=== PATIENT | male | born 1945 | race Caucasian/White ===

== ENCOUNTER → 2018-04-02 | Outpatient (CLI) | payer MEDICARE ==
--- NOTE | 2018-04-03 08:07 | REP ---
Clinical: Lung screening. History of nicotine dependence Comparison: 01/27/2015 Technique: Axial low-dose noncontrast images from the thoracic inlet to the upper abdomen using lung screening technique. Findings: The lung lyon demonstrate mild chronic interstitial changes along with scattered calcified granulomata and calcified mediastinal/hilar lymph nodes consistent with prior granulomas disease. No consolidation, significant nodule or mass lesion is appreciated. No pleural effusion/reaction or pneumothorax. Tracheobronchial tree is patent. There is evidence for aneurysmal dilatation to the thoracic aorta primarily involving the distal arch and proximal descending thoracic aorta which measures roughly 5.5 cm maximal diameter. Impression: 1. Lung-RADS category I. No significant nodule or suspicious abnormality. Evidence for chronic granulomas disease essentially unchanged compared to prior examination. 2. Aneurysmal dilatation to the thoracic aorta as described above incompletely evaluated due to technique. Consider contrast enhanced chest CT for further investigation. Electronically Signed by Chris Ochoa MD 04/03/2018 07:58 A
== END ==
LOC: M RAD 14:23
PROVIDERS: ATTEND Internal Medicine Pulmonary Disease
DX: Z12.2 Encounter for screening for malignant neoplasm of respiratory organs (principal); Z87.891 Personal history of nicotine dependence; J44.9 Chronic obstructive pulmonary disease, unspecified; I77.810 Thoracic aortic ectasia

== ENCOUNTER → 2019-04-27 | Outpatient (CLI) | payer MEDICARE ==
--- NOTE | 2019-04-27 11:03 | REP ---
Clinical: Lung screening. History smoking. Comparison: 04/02/2018, 01/27/2015 Technique: Axial low-dose noncontrast images from the thoracic inlet to the upper abdomen using lung screening technique. Findings: The lung lyon are well-aerated. Chronic stable changes related to prior granulomatous disease are again noted including stable 5 mm nodule in the right middle lobe. No consolidation, significant nodule or mass lesion is appreciated. No pleural effusion/reaction or pneumothorax. Tracheobronchial tree is patent. Mediastinum demonstrates mild atherosclerotic changes of the coronary arteries without cardiomegaly. Aneurysmal dilatation to the thoracic aorta is again noted. Impression: 1. Lung-RADS category II. Stable chronic changes related to prior granulomatous disease unchanged compared 05/28/2014. 2. Thoracic aortic aneurysm again noted. Electronically Signed by Chirs Ochoa MD 04/27/2019 10:54 A
== END ==
LOC: M RAD 10:30
PROVIDERS: ATTEND Internal Medicine Pulmonary Disease
DX: Z87.891 Personal history of nicotine dependence (principal); Z12.2 Encounter for screening for malignant neoplasm of respiratory organs

== ENCOUNTER 2021-10-20 11:54 | Inpatient (IN) | payer MEDICARE ==
[~2021-10-20] VITALS: Ht 172.7 cm; Wt 80.6 kg
[2021-10-20] VITALS (7 sets, daily range): BP systolic 157; BP diastolic 79; O2SAT 96–98
[2021-10-20] MEDS ORDERED: BUDE10.7 INH ×2 (12:20→12:27)
[2021-10-20] MEDS ORDERED: METO100T5 PO (12:20)
[2021-10-20] MEDS ORDERED: PROAAER10 INH (12:20)
[2021-10-20] MEDS ORDERED: OLAN2.5T25 PO (12:20)
[2021-10-20] MEDS ORDERED: ATOR40TA75 PO (12:20)
[2021-10-20] MEDS ORDERED: ELIQ5TAB PO (12:20)
[2021-10-20] MEDS ORDERED: ACET500T15 PO (12:27)
[2021-10-20] MEDS ORDERED: AMIO200T49 PO (12:27)
[2021-10-20] MEDS ORDERED: FLOM0.4C39 PO (12:27)
[2021-10-20] MEDS ORDERED: CLOP75TA2 PO (12:27)
[2021-10-20] MEDS ORDERED: IPRA0.00 INH (12:27)
[2021-10-20] MEDS ORDERED: SERT25TA21 PO (12:27)
[2021-10-20] MEDS ORDERED: SENN-23 PO (12:27)
[2021-10-20] MEDS ORDERED: HOME MED LIST COMPLETE! XX SCH (12:30)
[2021-10-20] MEDS ORDERED: methylPREDNISolone 125MG 2ML VIAL IV ONE (12:50)
[2021-10-20 12:56] LABS: BASO % 0.4 % (0.0-1.0); EOS # 0.1 10^3/uL (0.0-0.5); EOS % 1.2 % (0.0-3.0); HEMATOCRIT 32.6 % (42.0-52.0); HEMOGLOBIN 9.5 g/dl (13.5-17.5); LYMPH % 9.1 % (24.0-44.0); MEAN CORPUSCULAR HEMOGLOBIN 25.1 pg (27.0-33.0); MEAN CORPUSCULAR HGB CONC 29.1 g/dl (32.0-36.5); MONO # 0.9 10^3/uL (0.0-0.8); MONO % 8.2 % (2.0-8.0); NEUTROPHILS # 8.7 10^3/uL (1.5-8.5); NEUTROPHILS % 79.9 % (36.0-66.0); PLATELET COUNT, AUTOMATED 412 10^3/uL (150-450); RED BLOOD COUNT 3.79 10^6/uL (4.30-6.10); WHITE BLOOD COUNT 10.9 10^3/uL (4.0-10.0)
[2021-10-20] MEDS: IPRATROPIUM 0.5MG/ALBUTEROL 2.5MG INH SOL UD 3ML (DUONEB) NEB PRN ×3 (12:59→13:42)
[2021-10-20 13:08] LABS: INR 2.18; PROTHROMBIN TIME 24.7 SECONDS (12.7-14.5)
[2021-10-20 13:21] LABS: ABG BASE EXCESS 1.4 (-2.0-2.0); ABG HCO3 25.9 MEQ/L (22.0-26.0); ABG O2 SATURATION 98.9 % (95.0-99.0); ABG PARTIAL PRESSURE CO2 40.7 mmHg (35.0-45.0); ABG PARTIAL PRESSURE O2 162.7 mmHg (75.0-100.0); ABG STANDARD HCO3 25.7 MEQ/L (22.0-26.0); ABG TOTAL CO2 27.2 MEQ/L (23.0-31.0); ABG pH (ARTERIAL) 7.422 UNITS (7.350-7.450)
[2021-10-20 13:36] LABS: CK-MB VALUE MASS 7.2 NG/ML (<3.6); MB/CK RELATIVE INDEX 3.67 (< OR =4)
[2021-10-20 13:44] LABS: ALBUMIN 1.9 GM/DL (3.2-5.2); ALT/SGPT 27 U/L (12-78); BILIRUBIN,DIRECT 0.3 MG/DL (0.0-0.2); BILIRUBIN,TOTAL 0.6 MG/DL (0.2-1.0); BLOOD UREA NITROGEN 19 MG/DL (7-18); CALCIUM LEVEL 8.1 MG/DL (8.8-10.2); CARBON DIOXIDE LEVEL 29 MEQ/L (21-32); CHLORIDE LEVEL 112 MEQ/L (98-107); CREATININE FOR GFR 0.75 MG/DL (0.70-1.30); GLOMERULAR FILTRATION RATE > 60.0 (>42); GLUCOSE, FASTING 98 MG/DL (70-100); LIPASE 180 U/L (73-393); NT-PRO BNP 683 PG/ML (<450); POTASSIUM SERUM 4.2 MEQ/L (3.5-5.1); SODIUM LEVEL 144 MEQ/L (136-145)
[2021-10-20] MEDS ORDERED: ISOVUE-370 76% 100ML VIAL As Ordered ONE (13:54)
[2021-10-20] MEDS ORDERED: PANTOPRAZOLE 40MG VIAL IV ONE (13:55)
[2021-10-20 14:43] LABS: MB/CK RELATIVE INDEX 3.68 (< OR =4)
[2021-10-20] MEDS ORDERED: PIPERACILLIN/TAZOBACTAM SOD 3.375 GM in D5W MINI-BAG PLUS 50 ML IV SCH (16:10)
[2021-10-20] MEDS ORDERED: VANCOMYCIN HCL 1,000 MG, VIAL MATE ADAPTER 1 EACH in NS 250 ML IV SCH (16:10)
[2021-10-20] MEDS ORDERED: FUROSEMIDE 40MG/4ML VIAL (J1940) IV ONE (18:50)
[2021-10-20] MEDS: PIPERACILLIN/TAZOBACTAM SOD 4.5 GM in D5W MINI-BAG PLUS 50 ML IV SCH (19:44)
[2021-10-20 19:52] LABS: HEMATOCRIT 30.9 % (42.0-52.0); HEMOGLOBIN 9.2 g/dl (13.5-17.5)
[2021-10-20] MEDS ORDERED: VANCOMYCIN HCL 1,000 MG, VIAL MATE ADAPTER 1 EACH in D5W 250 ML IV ONE ×2 (20:00→22:00)
[2021-10-20] MEDS ORDERED: VANCOMYCIN HCL 750 MG, VIAL MATE ADAPTER 1 EACH in D5W 250 ML IV ONE ×2 (20:00→23:00)
[2021-10-20] MEDS: ATORVASTATIN 20 MG TAB PO SCH (22:01)
[2021-10-20] MEDS: SERTRALINE HCL 25 MG TABLET PO SCH (22:01)
[2021-10-20] MEDS: SENOKOT S TAB PO SCH (22:02)
[2021-10-20] MEDS: OLANZapine 2.5MG TABLET PO SCH (22:04)
[2021-10-20 22:37] LABS: PERCENT SATURATION 10.9 % (19.7-50.0)
[2021-10-20 22:48] LABS: FOLATE 23.4 NG/ML (>5.4)
[2021-10-20] MEDS: IPRATROPIUM 0.5MG/ALBUTEROL 2.5MG INH SOL UD 3ML (DUONEB) NEB SCH (23:24)
[2021-10-21] VITALS (20 sets, daily range): BP systolic 102–154; BP diastolic 51–70; O2SAT 88–100
[2021-10-21 01:21] LABS: HEMATOCRIT 29.4 % (42.0-52.0); HEMOGLOBIN 8.7 g/dl (13.5-17.5)
[2021-10-21] MEDS: PIPERACILLIN/TAZOBACTAM SOD 4.5 GM in D5W MINI-BAG PLUS 50 ML IV SCH ×4 (01:36→18:30)
[2021-10-21] MEDS: IPRATROPIUM 0.5MG/ALBUTEROL 2.5MG INH SOL UD 3ML (DUONEB) NEB SCH ×6 (03:47→22:36)
[2021-10-21 05:18] LABS: HEMATOCRIT 30.3 % (42.0-52.0); HEMOGLOBIN 8.8 g/dl (13.5-17.5); MEAN CORPUSCULAR HEMOGLOBIN 25.1 pg (27.0-33.0); MEAN CORPUSCULAR VOLUME 86.6 fl (80.0-96.0); PLATELET COUNT, AUTOMATED 397 10^3/uL (150-450); WHITE BLOOD COUNT 8.4 10^3/uL (4.0-10.0)
[2021-10-21 05:57] LABS: BLOOD UREA NITROGEN 17 MG/DL (7-18); CALCIUM LEVEL 7.9 MG/DL (8.8-10.2); CARBON DIOXIDE LEVEL 30 MEQ/L (21-32); CHLORIDE LEVEL 110 MEQ/L (98-107); CREATININE FOR GFR 0.74 MG/DL (0.70-1.30); GLOMERULAR FILTRATION RATE > 60.0 (>42); GLUCOSE, FASTING 154 MG/DL (70-100); MAGNESIUM LEVEL 1.8 MG/DL (1.8-2.4); PHOSPHORUS LEVEL 2.9 MG/DL (2.5-4.9); POTASSIUM SERUM 4.2 MEQ/L (3.5-5.1); SODIUM LEVEL 143 MEQ/L (136-145)
[2021-10-21 07:39] LABS: FREE T4 1.29 NG/DL (0.76-1.46)
[2021-10-21] MEDS: SYMBICORT 160/4.5MCG INHALER 6GM INH SCH ×2 (08:00→19:48)
[2021-10-21] MEDS ORDERED: VANCOMYCIN HCL 1,000 MG, VIAL MATE ADAPTER 1 EACH in D5W 250 ML IV SCH (08:00)
[2021-10-21] MEDS: TAMSULOSIN 0.4 MG CAP PO SCH (08:53)
[2021-10-21] MEDS: OLANZapine 2.5MG TABLET PO SCH ×2 (08:53→20:10)
[2021-10-21] MEDS: MIRALAX *UNIT DOSE* 17GM PACKET PO SCH (09:00)
[2021-10-21] MEDS ORDERED: FUROSEMIDE 40MG/4ML VIAL (J1940) IV ONE (11:00)
[2021-10-21] MEDS: ALBUTEROL 90 MCG/ACT 8GM HFA INHALER INH PRN (14:04)
[2021-10-21] MEDS: SERTRALINE HCL 25 MG TABLET PO SCH (20:10)
[2021-10-21] MEDS: ATORVASTATIN 20 MG TAB PO SCH (20:10)
[2021-10-21] MEDS: SENOKOT S TAB PO SCH (20:10)
[2021-10-21] MEDS: VANCOMYCIN HCL 750 MG, VIAL MATE ADAPTER 1 EACH in D5W 250 ML IV SCH (20:10)
[2021-10-21] MEDS ORDERED: RAMELTEON 8 MG TAB (ROZEREM) PO ONE (21:00)
[2021-10-22] VITALS (14 sets, daily range): BP systolic 96–125; BP diastolic 51–66; O2SAT 92–100
[2021-10-22] MEDS: IPRATROPIUM 0.5MG/ALBUTEROL 2.5MG INH SOL UD 3ML (DUONEB) NEB SCH ×6 (02:57→23:55)
[2021-10-22 05:56] LABS: BASO % 0.3 % (0.0-1.0); EOS # 0.2 10^3/uL (0.0-0.5); EOS % 1.5 % (0.0-3.0); HEMATOCRIT 27.9 % (42.0-52.0); HEMOGLOBIN 8.4 g/dl (13.5-17.5); LYMPH # 1.2 10^3/uL (1.5-5.0); LYMPH % 11.7 % (24.0-44.0); MEAN CORPUSCULAR HEMOGLOBIN 25.9 pg (27.0-33.0); MEAN CORPUSCULAR HGB CONC 30.1 g/dl (32.0-36.5); MEAN CORPUSCULAR VOLUME 86.1 fl (80.0-96.0); MONO # 0.9 10^3/uL (0.0-0.8); MONO % 8.3 % (2.0-8.0); NEUTROPHILS # 7.9 10^3/uL (1.5-8.5); NEUTROPHILS % 77.1 % (36.0-66.0); PLATELET COUNT, AUTOMATED 388 10^3/uL (150-450); RED BLOOD COUNT 3.24 10^6/uL (4.30-6.10); WHITE BLOOD COUNT 10.2 10^3/uL (4.0-10.0)
[2021-10-22] MEDS: PIPERACILLIN/TAZOBACTAM SOD 4.5 GM in D5W MINI-BAG PLUS 50 ML IV SCH ×5 (06:00→18:42)
[2021-10-22 06:26] LABS: BLOOD UREA NITROGEN 17 MG/DL (7-18); CALCIUM LEVEL 7.6 MG/DL (8.8-10.2); CARBON DIOXIDE LEVEL 33 MEQ/L (21-32); CHLORIDE LEVEL 109 MEQ/L (98-107); GLOMERULAR FILTRATION RATE > 60.0 (>42); GLUCOSE, FASTING 112 MG/DL (70-100); MAGNESIUM LEVEL 1.7 MG/DL (1.8-2.4); PHOSPHORUS LEVEL 1.9 MG/DL (2.5-4.9); POTASSIUM SERUM 3.1 MEQ/L (3.5-5.1); SODIUM LEVEL 145 MEQ/L (136-145)
[2021-10-22] MEDS ORDERED: MAG SULF 1GM/100ML (MAG RUN) 1 GM in IV 1 EA IV ONE (07:00)
[2021-10-22] MEDS ORDERED: POTASSIUM CHLORIDE 10MEQ SR TABLET PO ONE (07:00)
[2021-10-22] MEDS: SYMBICORT 160/4.5MCG INHALER 6GM INH SCH ×2 (08:58→20:50)
[2021-10-22] MEDS ORDERED: POTASSIUM PHOSPHATE INJ 15 MMOL in D5W 250 ML IV ONE (09:00)
[2021-10-22] MEDS: VANCOMYCIN HCL 750 MG, VIAL MATE ADAPTER 1 EACH in D5W 250 ML IV SCH (09:01)
[2021-10-22] MEDS: MIRALAX *UNIT DOSE* 17GM PACKET PO SCH (09:02)
[2021-10-22] MEDS: OLANZapine 2.5MG TABLET PO SCH ×2 (09:02→20:30)
[2021-10-22] MEDS: TAMSULOSIN 0.4 MG CAP PO SCH (09:02)
[2021-10-22] MEDS ORDERED: FUROSEMIDE 40MG/4ML VIAL (J1940) IV ONE (10:30)
[2021-10-22] MEDS: LACTULOSE 20 GM/30 ML SYRUP UD PO SCH ×2 (10:41→20:31)
[2021-10-22] MEDS ORDERED: SODIUM CHLORIDE NASAL 0.65% SPRAY BTL (OCEAN) PRN (13:25)
[2021-10-22] MEDS: SENOKOT S TAB PO SCH (20:30)
[2021-10-22] MEDS: SERTRALINE HCL 25 MG TABLET PO SCH (20:31)
[2021-10-22] MEDS: ATORVASTATIN 20 MG TAB PO SCH (20:31)
[2021-10-22] MEDS ORDERED: DOXYCYCLINE HYCLATE 100MG TABLET PO SCH (21:00)
[2021-10-22] MEDS: ALBUTEROL 90 MCG/ACT 8GM HFA INHALER INH PRN (22:40)
[2021-10-23] VITALS (21 sets, daily range): BP systolic 100–119; BP diastolic 50–71; O2SAT 91–98
[2021-10-23] MEDS: PIPERACILLIN/TAZOBACTAM SOD 4.5 GM in D5W MINI-BAG PLUS 50 ML IV SCH ×2 (01:12→06:01)
[2021-10-23] MEDS: IPRATROPIUM 0.5MG/ALBUTEROL 2.5MG INH SOL UD 3ML (DUONEB) NEB SCH ×5 (03:32→20:00)
[2021-10-23 05:47] LABS: HEMATOCRIT 27.9 % (42.0-52.0); HEMOGLOBIN 8.5 g/dl (13.5-17.5); MEAN CORPUSCULAR HEMOGLOBIN 25.8 pg (27.0-33.0); MEAN CORPUSCULAR HGB CONC 30.5 g/dl (32.0-36.5); MEAN CORPUSCULAR VOLUME 84.8 fl (80.0-96.0); PLATELET COUNT, AUTOMATED 360 10^3/uL (150-450); RED BLOOD COUNT 3.29 10^6/uL (4.30-6.10); WHITE BLOOD COUNT 8.7 10^3/uL (4.0-10.0)
[2021-10-23 06:27] LABS: BLOOD UREA NITROGEN 13 MG/DL (7-18); CALCIUM LEVEL 7.3 MG/DL (8.8-10.2); CARBON DIOXIDE LEVEL 29 MEQ/L (21-32); CHLORIDE LEVEL 108 MEQ/L (98-107); GLOMERULAR FILTRATION RATE > 60.0 (>42); GLUCOSE, FASTING 114 MG/DL (70-100); LDH LACTATE DEHYDROGENASE 333 U/L (87-241); MAGNESIUM LEVEL 1.6 MG/DL (1.8-2.4); PHOSPHORUS LEVEL 2.4 MG/DL (2.5-4.9); POTASSIUM SERUM 3.2 MEQ/L (3.5-5.1); SODIUM LEVEL 142 MEQ/L (136-145)
[2021-10-23] MEDS ORDERED: POTASSIUM CHLORIDE 10MEQ SR TABLET PO ONE (06:50)
[2021-10-23] MEDS: MAG SULF 1GM/100ML (MAG RUN) 1 GM in IV 1 EA IV SCH ×2 (07:52→08:59)
[2021-10-23] MEDS: SYMBICORT 160/4.5MCG INHALER 6GM INH SCH ×2 (08:43→20:47)
[2021-10-23] MEDS ORDERED: POTASSIUM PHOSPHATE INJ 20 MMOL in D5W 250 ML IV ONE (09:00)
[2021-10-23] MEDS: LACTULOSE 20 GM/30 ML SYRUP UD PO SCH ×2 (09:27→20:24)
[2021-10-23] MEDS: TAMSULOSIN 0.4 MG CAP PO SCH (09:27)
[2021-10-23] MEDS: OLANZapine 2.5MG TABLET PO SCH ×2 (09:27→20:23)
[2021-10-23] MEDS: MIRALAX *UNIT DOSE* 17GM PACKET PO SCH (09:27)
[2021-10-23] MEDS ORDERED: FUROSEMIDE 40MG/4ML VIAL (J1940) IV ONE (10:00)
[2021-10-23] MEDS ORDERED: LIDOCAINE 1% MDV 20ML VIAL As Ordered ONE (11:22)
[2021-10-23 12:55] LABS: PH BODY FLUID 7.403 UNITS (NOT ESTABLISHED); SOURCE, BODY FLUID pH PLEURAL
[2021-10-23 13:58] LABS: SOURCE, BODY FLUID ALBUMIN PLEURAL; SOURCE, BODY FLUID GLUCOSE PLEURAL; SOURCE, BODY FLUID LDH PLEURAL; SOURCE, BODY FLUID TOT PROTEIN PLEURAL; TOTAL PROTEIN, BODY FLUID 6.3 G/DL (NOT ESTABLISHED)
[2021-10-23 13:59] LABS: SOURCE, BODY FLUID AMYLASE PLEURAL
[2021-10-23 14:00] LABS: SOURCE, BODY FLUID CHOL PLEURAL; SOURCE, BODY FLUID TRIG PLEURAL; TRIGLYCERIDE, BODY FLUID 175 MG/DL (NOT ESTABLISHED)
[2021-10-23 14:05] LABS: SOURCE, BODY FLUID PLEURAL
[2021-10-23 14:06] LABS: APPEARANCE, BODY FLUID TURBID (CLEAR); PLEURAL FL COLOR RED (COLORLESS)
[2021-10-23] MEDS: LevoFLOXacin 750 MG TABLET PO SCH (14:15)
[2021-10-23 15:32] LABS: TOTAL PROTEIN 4.9 GM/DL (6.4-8.2)
[2021-10-23] MEDS: MORPHINE 2 MG/ML 1ML VIAL IV PRN (17:00)
[2021-10-23] MEDS: SERTRALINE HCL 25 MG TABLET PO SCH (20:23)
[2021-10-23] MEDS: ATORVASTATIN 20 MG TAB PO SCH (20:23)
[2021-10-23] MEDS: SENOKOT S TAB PO SCH (20:23)
[2021-10-24] VITALS (14 sets, daily range): BP systolic 100–133; BP diastolic 51–68; O2SAT 76–100
[2021-10-24] MEDS: KETOROLAC 30 MG/ML 1ML VIAL IV PRN ×2 (00:53→21:07)
[2021-10-24] MEDS: IPRATROPIUM 0.5MG/ALBUTEROL 2.5MG INH SOL UD 3ML (DUONEB) NEB SCH ×7 (01:31→23:31)
[2021-10-24] MEDS: LevoFLOXacin 750 MG TABLET PO SCH (05:08)
[2021-10-24] MEDS: ACETAMINOPHEN 500 MG TAB PO PRN (05:08)
[2021-10-24 05:09] LABS: HEMATOCRIT 28.8 % (42.0-52.0); HEMOGLOBIN 8.8 g/dl (13.5-17.5); MEAN CORPUSCULAR HEMOGLOBIN 26.3 pg (27.0-33.0); MEAN CORPUSCULAR HGB CONC 30.6 g/dl (32.0-36.5); PLATELET COUNT, AUTOMATED 333 10^3/uL (150-450); RED BLOOD COUNT 3.35 10^6/uL (4.30-6.10)
[2021-10-24 06:07] LABS: BLOOD UREA NITROGEN 13 MG/DL (7-18); CALCIUM LEVEL 7.5 MG/DL (8.8-10.2); CARBON DIOXIDE LEVEL 32 MEQ/L (21-32); CHLORIDE LEVEL 107 MEQ/L (98-107); CREATININE FOR GFR 0.86 MG/DL (0.70-1.30); GLOMERULAR FILTRATION RATE > 60.0 (>42); GLUCOSE, FASTING 100 MG/DL (70-100); PHOSPHORUS LEVEL 2.2 MG/DL (2.5-4.9); POTASSIUM SERUM 3.6 MEQ/L (3.5-5.1); SODIUM LEVEL 144 MEQ/L (136-145)
[2021-10-24] MEDS ORDERED: K-PHOS ORIGINAL (POT.ACID PHOSPHATE) 500MG TAB PO ONE (06:55)
[2021-10-24] MEDS: MORPHINE 2 MG/ML 1ML VIAL IV PRN (08:17)
[2021-10-24] MEDS: TAMSULOSIN 0.4 MG CAP PO SCH (08:18)
[2021-10-24] MEDS: LACTULOSE 20 GM/30 ML SYRUP UD PO SCH ×2 (08:18→21:02)
[2021-10-24] MEDS: MIRALAX *UNIT DOSE* 17GM PACKET PO SCH (08:18)
[2021-10-24] MEDS: OLANZapine 2.5MG TABLET PO SCH (08:18)
[2021-10-24] MEDS: SYMBICORT 160/4.5MCG INHALER 6GM INH SCH ×2 (09:22→19:44)
[2021-10-24] MEDS ORDERED: ALTEPLASE 2MG/2ML VIAL XX ONE (12:00)
[2021-10-24] MEDS: PIPERACILLIN/TAZOBACTAM SOD 3.375 GM in D5W MINI-BAG PLUS 50 ML IV SCH ×2 (13:01→18:10)
[2021-10-24] MEDS ORDERED: LIDOCAINE 1% MDV 20ML VIAL As Ordered ONE (16:03)
[2021-10-24] MEDS ORDERED: CEFUROXIME 500 MG TAB PO SCH (21:00)
[2021-10-24] MEDS: ATORVASTATIN 20 MG TAB PO SCH (21:01)
[2021-10-24] MEDS: SERTRALINE HCL 25 MG TABLET PO SCH (21:01)
[2021-10-24] MEDS: DOXYCYCLINE HYCLATE 100MG TABLET PO SCH (21:02)
[2021-10-24] MEDS: SENOKOT S TAB PO SCH (21:02)
[2021-10-25] VITALS: BP 102/62
[2021-10-25] MEDS: PIPERACILLIN/TAZOBACTAM SOD 3.375 GM in D5W MINI-BAG PLUS 50 ML IV SCH ×3 (00:50→16:53)
[2021-10-25] MEDS: MORPHINE 2 MG/ML 1ML VIAL IV PRN ×2 (00:50→20:41)
[2021-10-25 04:00] VITALS: BP 148/72
[2021-10-25] MEDS: IPRATROPIUM 0.5MG/ALBUTEROL 2.5MG INH SOL UD 3ML (DUONEB) NEB SCH ×6 (04:07→23:19)
[2021-10-25 06:39] LABS: HEMATOCRIT 31.1 % (42.0-52.0); HEMOGLOBIN 9.1 g/dl (13.5-17.5); MEAN CORPUSCULAR HEMOGLOBIN 25.2 pg (27.0-33.0); MEAN CORPUSCULAR HGB CONC 29.3 g/dl (32.0-36.5); MEAN CORPUSCULAR VOLUME 86.1 fl (80.0-96.0); PLATELET COUNT, AUTOMATED 317 10^3/uL (150-450); RED BLOOD COUNT 3.61 10^6/uL (4.30-6.10); WHITE BLOOD COUNT 10.6 10^3/uL (4.0-10.0)
[2021-10-25 07:01] LABS: BLOOD UREA NITROGEN 16 MG/DL (7-18); CALCIUM LEVEL 7.8 MG/DL (8.8-10.2); CARBON DIOXIDE LEVEL 34 MEQ/L (21-32); CHLORIDE LEVEL 106 MEQ/L (98-107); CREATININE FOR GFR 1.03 MG/DL (0.70-1.30); GLOMERULAR FILTRATION RATE > 60.0 (>42); GLUCOSE, FASTING 106 MG/DL (70-100); MAGNESIUM LEVEL 1.9 MG/DL (1.8-2.4); PHOSPHORUS LEVEL 2.2 MG/DL (2.5-4.9); POTASSIUM SERUM 3.6 MEQ/L (3.5-5.1); SODIUM LEVEL 143 MEQ/L (136-145)
[2021-10-25] MEDS ORDERED: MAG SULF 1GM/100ML (MAG RUN) 1 GM in IV 1 EA IV ONE (07:05)
[2021-10-25] MEDS: SYMBICORT 160/4.5MCG INHALER 6GM INH SCH ×2 (07:41→19:24)
[2021-10-25 07:53] VITALS: BP 109/74
[2021-10-25] MEDS ORDERED: POTASSIUM PHOSPHATE INJ 20 MMOL in D5W 250 ML IV ONE (08:00)
[2021-10-25] MEDS: LACTULOSE 20 GM/30 ML SYRUP UD PO SCH ×3 (09:00→21:12)
[2021-10-25] MEDS: MIRALAX *UNIT DOSE* 17GM PACKET PO SCH (09:00)
[2021-10-25] MEDS: DOXYCYCLINE HYCLATE 100MG TABLET PO SCH ×2 (09:55→21:10)
[2021-10-25] MEDS: FUROSEMIDE 20 MG TAB PO SCH (09:55)
[2021-10-25] MEDS: TAMSULOSIN 0.4 MG CAP PO SCH (09:55)
[2021-10-25] MEDS ORDERED: LIDOCAINE 1% MDV 20ML VIAL As Ordered ONE (11:36)
[2021-10-25 13:09] LABS: BODY FLUID CULTURE Not Indicated (.); LEGIONELLA ANTIGEN URINE Negative (Negative); ORGANISM ID Not indicated. (.); SPECIMEN SOURCE Urine (.); URINE STREP PNEUMONIAE ANTIGEN Negative (Negative)
[2021-10-25 16:00] VITALS: BP 107/51
[2021-10-25 20:00] VITALS: BP 96/53
[2021-10-25] MEDS: ATORVASTATIN 20 MG TAB PO SCH (21:10)
[2021-10-25] MEDS: SENOKOT S TAB PO SCH (21:10)
[2021-10-25] MEDS: SERTRALINE HCL 25 MG TABLET PO SCH (21:10)
[2021-10-25] MEDS: KETOROLAC 30 MG/ML 1ML VIAL IV PRN (21:11)
[2021-10-26] VITALS (13 sets, daily range): BP systolic 95–116; BP diastolic 53–58; O2SAT 87–93
[2021-10-26] MEDS: PIPERACILLIN/TAZOBACTAM SOD 3.375 GM in D5W MINI-BAG PLUS 50 ML IV SCH ×4 (00:04→19:42)
[2021-10-26] MEDS: IPRATROPIUM 0.5MG/ALBUTEROL 2.5MG INH SOL UD 3ML (DUONEB) NEB SCH ×6 (04:00→23:17)
[2021-10-26 05:11] LABS: HEMATOCRIT 29.5 % (42.0-52.0); HEMOGLOBIN 8.7 g/dl (13.5-17.5); MEAN CORPUSCULAR HEMOGLOBIN 25.2 pg (27.0-33.0); MEAN CORPUSCULAR HGB CONC 29.5 g/dl (32.0-36.5); MEAN CORPUSCULAR VOLUME 85.5 fl (80.0-96.0); PLATELET COUNT, AUTOMATED 302 10^3/uL (150-450); RED BLOOD COUNT 3.45 10^6/uL (4.30-6.10); WHITE BLOOD COUNT 10.1 10^3/uL (4.0-10.0)
[2021-10-26 05:43] LABS: BLOOD UREA NITROGEN 17 MG/DL (7-18); CALCIUM LEVEL 7.4 MG/DL (8.8-10.2); CARBON DIOXIDE LEVEL 33 MEQ/L (21-32); CHLORIDE LEVEL 106 MEQ/L (98-107); CREATININE FOR GFR 1.15 MG/DL (0.70-1.30); GLOMERULAR FILTRATION RATE > 60.0 (>42); GLUCOSE, FASTING 101 MG/DL (70-100); MAGNESIUM LEVEL 1.9 MG/DL (1.8-2.4); PHOSPHORUS LEVEL 2.6 MG/DL (2.5-4.9); POTASSIUM SERUM 3.6 MEQ/L (3.5-5.1); SODIUM LEVEL 140 MEQ/L (136-145)
[2021-10-26] MEDS ORDERED: POTASSIUM CHLORIDE 10MEQ SR TABLET PO ONE (07:00)
[2021-10-26] MEDS: SYMBICORT 160/4.5MCG INHALER 6GM INH SCH ×2 (08:31→19:39)
[2021-10-26] MEDS: LACTULOSE 20 GM/30 ML SYRUP UD PO SCH (09:00)
[2021-10-26] MEDS: METOPROLOL TART 25 MG TABLET PO SCH (09:00)
[2021-10-26] MEDS: DOXYCYCLINE HYCLATE 100MG TABLET PO SCH ×2 (09:41→20:49)
[2021-10-26] MEDS: TAMSULOSIN 0.4 MG CAP PO SCH (09:41)
[2021-10-26] MEDS: MIRALAX *UNIT DOSE* 17GM PACKET PO SCH (09:42)
[2021-10-26] MEDS: FUROSEMIDE 20 MG TAB PO SCH (09:42)
[2021-10-26] MEDS ORDERED: MAG SULF 1GM/100ML (MAG RUN) 1 GM in IV 1 EA IV ONE (18:00)
[2021-10-26 19:27] LABS: AMORPHOUS SEDIMENT, URINE SMALL AMOUNT (NEGATIVE); BACTERIA, URINE NONE SEEN; CALCIUM OXALATE CRYSTALS,URINE SMALL AMOUNT /hpf; HYALINE CAST, URINE NONE SEEN /lpf (0-1); RBC, URINE 40-50 /hpf (0-3); SQUAMOUS EPITHELIAL CELL URINE SMALL AMOUNT /hpf (SMALL AMT); TRANSITIONAL EPI CELLS, URINE SMALL AMOUNT /hpf
[2021-10-26] MEDS: ATORVASTATIN 20 MG TAB PO SCH (20:49)
[2021-10-26] MEDS: SERTRALINE HCL 25 MG TABLET PO SCH (20:49)
[2021-10-26] MEDS: SENOKOT S TAB PO SCH (20:50)
[2021-10-27] VITALS (25 sets, daily range): BP systolic 101–130; BP diastolic 55–67; O2SAT 88–100
[2021-10-27] MEDS: PIPERACILLIN/TAZOBACTAM SOD 3.375 GM in D5W MINI-BAG PLUS 50 ML IV SCH ×5 (00:31→23:56)
[2021-10-27] MEDS: MORPHINE 2 MG/ML 1ML VIAL IV PRN (00:50)
[2021-10-27] MEDS: IPRATROPIUM 0.5MG/ALBUTEROL 2.5MG INH SOL UD 3ML (DUONEB) NEB SCH ×6 (04:00→23:07)
[2021-10-27 05:11] LABS: HEMATOCRIT 28.1 % (42.0-52.0); HEMOGLOBIN 8.6 g/dl (13.5-17.5); MEAN CORPUSCULAR HEMOGLOBIN 26.4 pg (27.0-33.0); MEAN CORPUSCULAR HGB CONC 30.6 g/dl (32.0-36.5); MEAN CORPUSCULAR VOLUME 86.2 fl (80.0-96.0); PLATELET COUNT, AUTOMATED 283 10^3/uL (150-450); RED BLOOD COUNT 3.26 10^6/uL (4.30-6.10); WHITE BLOOD COUNT 8.9 10^3/uL (4.0-10.0)
[2021-10-27 05:54] LABS: BLOOD UREA NITROGEN 18 MG/DL (7-18); CALCIUM LEVEL 7.6 MG/DL (8.8-10.2); CARBON DIOXIDE LEVEL 31 MEQ/L (21-32); CHLORIDE LEVEL 107 MEQ/L (98-107); CREATININE FOR GFR 1.08 MG/DL (0.70-1.30); GLOMERULAR FILTRATION RATE > 60.0 (>42); GLUCOSE, FASTING 96 MG/DL (70-100); MAGNESIUM LEVEL 1.9 MG/DL (1.8-2.4); PHOSPHORUS LEVEL 1.9 MG/DL (2.5-4.9); POTASSIUM SERUM 3.8 MEQ/L (3.5-5.1); SODIUM LEVEL 140 MEQ/L (136-145)
[2021-10-27] MEDS: SYMBICORT 160/4.5MCG INHALER 6GM INH SCH ×2 (07:21→19:29)
[2021-10-27] MEDS: MIRALAX *UNIT DOSE* 17GM PACKET PO SCH (09:00)
[2021-10-27] MEDS: METOPROLOL TART 25 MG TABLET PO SCH (09:43)
[2021-10-27] MEDS: TAMSULOSIN 0.4 MG CAP PO SCH (09:43)
[2021-10-27] MEDS: FUROSEMIDE 20 MG TAB PO SCH (09:43)
[2021-10-27] MEDS: DOXYCYCLINE HYCLATE 100MG TABLET PO SCH ×2 (09:43→20:28)
[2021-10-27] MEDS: CLOPIDOGREL 75 MG TAB PO SCH (12:35)
[2021-10-27] MEDS: APIXABAN 5 MG TAB (ELIQUIS) PO SCH ×2 (12:35→20:28)
[2021-10-27] MEDS: SENOKOT S TAB PO SCH (20:28)
[2021-10-27] MEDS: ATORVASTATIN 20 MG TAB PO SCH (20:28)
[2021-10-27] MEDS: SERTRALINE HCL 25 MG TABLET PO SCH (20:28)
[2021-10-27] MEDS: ALBUTEROL 90 MCG/ACT 8GM HFA INHALER INH PRN (20:55)
[2021-10-28] MEDS: IPRATROPIUM 0.5MG/ALBUTEROL 2.5MG INH SOL UD 3ML (DUONEB) NEB SCH ×5 (03:15→20:00)
[2021-10-28 03:50] VITALS: BP 134/63
[2021-10-28] MEDS: PIPERACILLIN/TAZOBACTAM SOD 3.375 GM in D5W MINI-BAG PLUS 50 ML IV SCH ×4 (06:14→23:42)
[2021-10-28] MEDS: ALBUTEROL 90 MCG/ACT 8GM HFA INHALER INH PRN (06:14)
[2021-10-28 07:26] LABS: HEMATOCRIT 28.5 % (42.0-52.0); HEMOGLOBIN 8.4 g/dl (13.5-17.5); MEAN CORPUSCULAR HEMOGLOBIN 25.1 pg (27.0-33.0); MEAN CORPUSCULAR HGB CONC 29.5 g/dl (32.0-36.5); MEAN CORPUSCULAR VOLUME 85.1 fl (80.0-96.0); PLATELET COUNT, AUTOMATED 269 10^3/uL (150-450); RED BLOOD COUNT 3.35 10^6/uL (4.30-6.10); WHITE BLOOD COUNT 11.4 10^3/uL (4.0-10.0)
[2021-10-28] MEDS: SYMBICORT 160/4.5MCG INHALER 6GM INH SCH ×2 (07:39→20:55)
[2021-10-28 07:55] LABS: BLOOD UREA NITROGEN 17 MG/DL (7-18); CALCIUM LEVEL 7.5 MG/DL (8.8-10.2); CARBON DIOXIDE LEVEL 31 MEQ/L (21-32); CHLORIDE LEVEL 108 MEQ/L (98-107); CREATININE FOR GFR 0.92 MG/DL (0.70-1.30); GLOMERULAR FILTRATION RATE > 60.0 (>42); GLUCOSE, FASTING 101 MG/DL (70-100); POTASSIUM SERUM 3.4 MEQ/L (3.5-5.1); SODIUM LEVEL 144 MEQ/L (136-145)
[2021-10-28 08:00] VITALS: BP 92/54
[2021-10-28] MEDS: MIRALAX *UNIT DOSE* 17GM PACKET PO SCH (09:00)
[2021-10-28] MEDS: METOPROLOL TART 25 MG TABLET PO SCH (09:00)
[2021-10-28] MEDS: FUROSEMIDE 20 MG TAB PO SCH (09:00)
[2021-10-28] MEDS: CLOPIDOGREL 75 MG TAB PO SCH (09:42)
[2021-10-28] MEDS: TAMSULOSIN 0.4 MG CAP PO SCH (09:42)
[2021-10-28] MEDS: ACETAMINOPHEN 500 MG TAB PO PRN (09:42)
[2021-10-28] MEDS: APIXABAN 5 MG TAB (ELIQUIS) PO SCH ×2 (09:42→21:09)
[2021-10-28] MEDS: DOXYCYCLINE HYCLATE 100MG TABLET PO SCH ×2 (09:43→21:09)
[2021-10-28 12:00] VITALS: BP_SYST 88; BP_SYST 98; BP_DIAS 54; BP_DIAS 56
[2021-10-28 16:00] VITALS: BP 98/64
[2021-10-28 19:00] VITALS: BP 126/71
[2021-10-28] MEDS: SERTRALINE HCL 25 MG TABLET PO SCH (21:09)
[2021-10-28] MEDS: SENOKOT S TAB PO SCH (21:09)
[2021-10-28] MEDS: ATORVASTATIN 20 MG TAB PO SCH (21:09)
[2021-10-28 22:09] VITALS: BP 122/67
[2021-10-29 01:07] VITALS: BP 115/85
[2021-10-29] MEDS: IPRATROPIUM 0.5MG/ALBUTEROL 2.5MG INH SOL UD 3ML (DUONEB) NEB SCH ×7 (01:23→23:33)
[2021-10-29] MEDS: PIPERACILLIN/TAZOBACTAM SOD 3.375 GM in D5W MINI-BAG PLUS 50 ML IV SCH (05:11)
[2021-10-29 05:29] VITALS: BP 125/66
[2021-10-29 06:44] LABS: HEMATOCRIT 27.2 % (42.0-52.0); HEMOGLOBIN 8.2 g/dl (13.5-17.5); MEAN CORPUSCULAR HEMOGLOBIN 25.2 pg (27.0-33.0); MEAN CORPUSCULAR HGB CONC 30.1 g/dl (32.0-36.5); MEAN CORPUSCULAR VOLUME 83.7 fl (80.0-96.0); PLATELET COUNT, AUTOMATED 270 10^3/uL (150-450); RED BLOOD COUNT 3.25 10^6/uL (4.30-6.10)
[2021-10-29 07:24] LABS: BLOOD UREA NITROGEN 16 MG/DL (7-18); CALCIUM LEVEL 7.6 MG/DL (8.8-10.2); CARBON DIOXIDE LEVEL 30 MEQ/L (21-32); CHLORIDE LEVEL 108 MEQ/L (98-107); GLOMERULAR FILTRATION RATE > 60.0 (>42); GLUCOSE, FASTING 86 MG/DL (70-100); POTASSIUM SERUM 3.2 MEQ/L (3.5-5.1); SODIUM LEVEL 143 MEQ/L (136-145)
[2021-10-29] MEDS: SYMBICORT 160/4.5MCG INHALER 6GM INH SCH ×2 (07:42→19:15)
[2021-10-29] MEDS: DOXYCYCLINE HYCLATE 100MG TABLET PO SCH ×2 (08:43→21:12)
[2021-10-29] MEDS: TAMSULOSIN 0.4 MG CAP PO SCH (08:43)
[2021-10-29] MEDS: CLOPIDOGREL 75 MG TAB PO SCH (08:43)
[2021-10-29] MEDS: FUROSEMIDE 20 MG TAB PO SCH (08:44)
[2021-10-29] MEDS: APIXABAN 5 MG TAB (ELIQUIS) PO SCH ×2 (08:44→21:12)
[2021-10-29] MEDS: METOPROLOL TART 25 MG TABLET PO SCH (08:44)
[2021-10-29] MEDS: MIRALAX *UNIT DOSE* 17GM PACKET PO SCH (08:45)
[2021-10-29 10:00] VITALS: BP 123/67
[2021-10-29] MEDS: CEFDINIR 300 MG CAP (OMNICEF) PO SCH (10:13)
[2021-10-29] MEDS: POTASSIUM CHLORIDE 10MEQ SR TABLET PO SCH ×2 (11:34→21:12)
[2021-10-29 15:00] VITALS: BP 120/65
[2021-10-29] MEDS: SENOKOT S TAB PO SCH (19:25)
[2021-10-29 19:51] VITALS: BP 118/65
[2021-10-29] MEDS: SERTRALINE HCL 25 MG TABLET PO SCH (21:12)
[2021-10-29] MEDS: ATORVASTATIN 20 MG TAB PO SCH (21:12)
[2021-10-30 02:05] VITALS: BP 118/65
[2021-10-30] MEDS: IPRATROPIUM 0.5MG/ALBUTEROL 2.5MG INH SOL UD 3ML (DUONEB) NEB SCH ×5 (03:19→20:00)
[2021-10-30 05:17] VITALS: BP 120/74
[2021-10-30 06:08] LABS: HEMATOCRIT 27.5 % (42.0-52.0); HEMOGLOBIN 8.4 g/dl (13.5-17.5); MEAN CORPUSCULAR HEMOGLOBIN 25.8 pg (27.0-33.0); MEAN CORPUSCULAR HGB CONC 30.5 g/dl (32.0-36.5); MEAN CORPUSCULAR VOLUME 84.6 fl (80.0-96.0); PLATELET COUNT, AUTOMATED 263 10^3/uL (150-450); RED BLOOD COUNT 3.25 10^6/uL (4.30-6.10); WHITE BLOOD COUNT 7.7 10^3/uL (4.0-10.0)
[2021-10-30 07:04] LABS: BLOOD UREA NITROGEN 16 MG/DL (7-18); CALCIUM LEVEL 7.6 MG/DL (8.8-10.2); CARBON DIOXIDE LEVEL 28 MEQ/L (21-32); CHLORIDE LEVEL 109 MEQ/L (98-107); CREATININE FOR GFR 0.83 MG/DL (0.70-1.30); GLOMERULAR FILTRATION RATE > 60.0 (>42); GLUCOSE, FASTING 78 MG/DL (70-100); POTASSIUM SERUM 3.5 MEQ/L (3.5-5.1); SODIUM LEVEL 141 MEQ/L (136-145)
[2021-10-30] MEDS: MIRALAX *UNIT DOSE* 17GM PACKET PO SCH (07:44)
[2021-10-30] MEDS: SYMBICORT 160/4.5MCG INHALER 6GM INH SCH ×2 (08:15→20:00)
[2021-10-30] MEDS: POTASSIUM CHLORIDE 10MEQ SR TABLET PO SCH ×2 (08:25→22:34)
[2021-10-30] MEDS: FUROSEMIDE 20 MG TAB PO SCH (08:25)
[2021-10-30] MEDS: APIXABAN 5 MG TAB (ELIQUIS) PO SCH ×2 (08:25→23:02)
[2021-10-30] MEDS: DOXYCYCLINE HYCLATE 100MG TABLET PO SCH (08:25)
[2021-10-30] MEDS: TAMSULOSIN 0.4 MG CAP PO SCH (08:25)
[2021-10-30] MEDS: CEFDINIR 300 MG CAP (OMNICEF) PO SCH (08:25)
[2021-10-30] MEDS: METOPROLOL TART 25 MG TABLET PO SCH (08:26)
[2021-10-30] MEDS: CLOPIDOGREL 75 MG TAB PO SCH (08:26)
[2021-10-30 10:00] VITALS: BP 110/60
[2021-10-30 14:00] VITALS: BP 117/60
[2021-10-30 22:00] VITALS: BP 117/60
[2021-10-30] MEDS: SERTRALINE HCL 25 MG TABLET PO SCH (22:34)
[2021-10-30] MEDS: ATORVASTATIN 20 MG TAB PO SCH (22:34)
[2021-10-30] MEDS: SENOKOT S TAB PO SCH (22:35)
[2021-10-31] MEDS: IPRATROPIUM 0.5MG/ALBUTEROL 2.5MG INH SOL UD 3ML (DUONEB) NEB SCH ×6 (00:43→20:00)
[2021-10-31] MEDS: RAMELTEON 8 MG TAB (ROZEREM) PO PRN ×2 (01:57→21:00)
[2021-10-31 04:00] VITALS: BP 120/64
[2021-10-31 06:56] LABS: HEMATOCRIT 29.1 % (42.0-52.0); HEMOGLOBIN 8.8 g/dl (13.5-17.5); MEAN CORPUSCULAR HEMOGLOBIN 25.8 pg (27.0-33.0); MEAN CORPUSCULAR HGB CONC 30.2 g/dl (32.0-36.5); MEAN CORPUSCULAR VOLUME 85.3 fl (80.0-96.0); PLATELET COUNT, AUTOMATED 281 10^3/uL (150-450); RED BLOOD COUNT 3.41 10^6/uL (4.30-6.10); WHITE BLOOD COUNT 7.8 10^3/uL (4.0-10.0)
[2021-10-31 07:22] LABS: BLOOD UREA NITROGEN 16 MG/DL (7-18); CALCIUM LEVEL 7.7 MG/DL (8.8-10.2); CARBON DIOXIDE LEVEL 28 MEQ/L (21-32); CHLORIDE LEVEL 111 MEQ/L (98-107); CREATININE FOR GFR 0.84 MG/DL (0.70-1.30); GLOMERULAR FILTRATION RATE > 60.0 (>42); GLUCOSE, FASTING 90 MG/DL (70-100); SODIUM LEVEL 142 MEQ/L (136-145)
[2021-10-31] MEDS: SYMBICORT 160/4.5MCG INHALER 6GM INH SCH ×2 (07:31→20:16)
[2021-10-31] MEDS: APIXABAN 5 MG TAB (ELIQUIS) PO SCH (08:41)
[2021-10-31] MEDS: FUROSEMIDE 20 MG TAB PO SCH (08:41)
[2021-10-31] MEDS: METOPROLOL TART 25 MG TABLET PO SCH (08:42)
[2021-10-31] MEDS: CLOPIDOGREL 75 MG TAB PO SCH (08:42)
[2021-10-31] MEDS: POTASSIUM CHLORIDE 10MEQ SR TABLET PO SCH ×2 (08:42→20:59)
[2021-10-31] MEDS: TAMSULOSIN 0.4 MG CAP PO SCH (08:42)
[2021-10-31 10:00] VITALS: BP 111/57
[2021-10-31 13:07] LABS: CLOSTRIDIUM DIFFICILE PCR NEGATIVE (NEGATIVE)
[2021-10-31 14:00] VITALS: BP 114/65
[2021-10-31] MEDS ORDERED: LOPERAMIDE 2 MG CAPLET PO PRN (14:50)
[2021-10-31 18:00] VITALS: BP 113/64
[2021-10-31] MEDS: SERTRALINE HCL 25 MG TABLET PO SCH (20:59)
[2021-10-31] MEDS: ATORVASTATIN 20 MG TAB PO SCH (20:59)
[2021-10-31] MEDS: ACETAMINOPHEN 500 MG TAB PO PRN (21:00)
[2021-10-31 22:00] VITALS: BP 119/78
[2021-11-01] MEDS: IPRATROPIUM 0.5MG/ALBUTEROL 2.5MG INH SOL UD 3ML (DUONEB) NEB SCH ×6 (00:24→20:00)
[2021-11-01] MEDS: PANTOPRAZOLE 40MG VIAL IV SCH ×3 (00:28→21:18)
[2021-11-01] MEDS: APIXABAN 5 MG TAB (ELIQUIS) PO SCH (00:28)
[2021-11-01 00:41] LABS: HEMATOCRIT 27.6 % (42.0-52.0); HEMOGLOBIN 8.2 g/dl (13.5-17.5)
[2021-11-01 02:00] VITALS: BP 122/67
[2021-11-01 06:00] VITALS: BP 120/55
[2021-11-01] MEDS: SYMBICORT 160/4.5MCG INHALER 6GM INH SCH ×2 (07:19→20:00)
[2021-11-01] MEDS: POTASSIUM CHLORIDE 10MEQ SR TABLET PO SCH ×2 (08:19→21:18)
[2021-11-01] MEDS: TAMSULOSIN 0.4 MG CAP PO SCH (08:19)
[2021-11-01] MEDS: METOPROLOL TART 25 MG TABLET PO SCH (08:20)
[2021-11-01] MEDS: FUROSEMIDE 20 MG TAB PO SCH (08:20)
[2021-11-01 08:31] LABS: HEMATOCRIT 30.3 % (42.0-52.0); MEAN CORPUSCULAR HEMOGLOBIN 25.8 pg (27.0-33.0); MEAN CORPUSCULAR HGB CONC 29.7 g/dl (32.0-36.5); MEAN CORPUSCULAR VOLUME 86.8 fl (80.0-96.0); PLATELET COUNT, AUTOMATED 306 10^3/uL (150-450); RED BLOOD COUNT 3.49 10^6/uL (4.30-6.10); WHITE BLOOD COUNT 7.8 10^3/uL (4.0-10.0)
[2021-11-01 08:56] LABS: INR 1.37; PROTHROMBIN TIME 17.3 SECONDS (12.7-14.5)
[2021-11-01 08:57] LABS: PARTIAL THROMBOPLASTIN TIME 58.3 SECONDS (25.9-37.0)
[2021-11-01 09:04] LABS: ALBUMIN 1.8 GM/DL (3.2-5.2); ALT/SGPT 36 U/L (12-78); BILIRUBIN,DIRECT 0.3 MG/DL (0.0-0.2); BILIRUBIN,TOTAL 0.6 MG/DL (0.2-1.0); BLOOD UREA NITROGEN 13 MG/DL (7-18); CALCIUM LEVEL 8.3 MG/DL (8.8-10.2); CARBON DIOXIDE LEVEL 27 MEQ/L (21-32); CHLORIDE LEVEL 110 MEQ/L (98-107); GLOMERULAR FILTRATION RATE > 60.0 (>42); GLUCOSE, FASTING 94 MG/DL (70-100); SODIUM LEVEL 143 MEQ/L (136-145); TOTAL PROTEIN 4.6 GM/DL (6.4-8.2)
[2021-11-01 14:00] VITALS: BP 99/53
[2021-11-01 20:00] VITALS: BP 121/70
[2021-11-01] MEDS: ATORVASTATIN 20 MG TAB PO SCH (21:18)
[2021-11-01] MEDS: RAMELTEON 8 MG TAB (ROZEREM) PO PRN (21:18)
[2021-11-01] MEDS: SERTRALINE HCL 25 MG TABLET PO SCH (21:18)
[2021-11-02] MEDS: IPRATROPIUM 0.5MG/ALBUTEROL 2.5MG INH SOL UD 3ML (DUONEB) NEB SCH ×6 (04:00→19:48)
[2021-11-02 06:00] VITALS: BP 121/68
[2021-11-02 06:20] VITALS: BP 121/68
[2021-11-02 06:30] LABS: HEMATOCRIT 26.9 % (42.0-52.0); HEMOGLOBIN 8.3 g/dl (13.5-17.5); MEAN CORPUSCULAR HEMOGLOBIN 26.1 pg (27.0-33.0); MEAN CORPUSCULAR HGB CONC 30.9 g/dl (32.0-36.5); MEAN CORPUSCULAR VOLUME 84.6 fl (80.0-96.0); PLATELET COUNT, AUTOMATED 278 10^3/uL (150-450); RED BLOOD COUNT 3.18 10^6/uL (4.30-6.10); WHITE BLOOD COUNT 8.9 10^3/uL (4.0-10.0)
[2021-11-02 07:14] LABS: BLOOD UREA NITROGEN 10 MG/DL (7-18); CALCIUM LEVEL 7.8 MG/DL (8.8-10.2); CARBON DIOXIDE LEVEL 28 MEQ/L (21-32); CHLORIDE LEVEL 112 MEQ/L (98-107); CREATININE FOR GFR 0.81 MG/DL (0.70-1.30); GLOMERULAR FILTRATION RATE > 60.0 (>42); GLUCOSE, FASTING 84 MG/DL (70-100); POTASSIUM SERUM 4.3 MEQ/L (3.5-5.1); SODIUM LEVEL 142 MEQ/L (136-145)
[2021-11-02] MEDS: SYMBICORT 160/4.5MCG INHALER 6GM INH SCH ×2 (07:49→19:48)
[2021-11-02] MEDS: PANTOPRAZOLE 40MG VIAL IV SCH ×2 (09:06→21:35)
[2021-11-02] MEDS: TAMSULOSIN 0.4 MG CAP PO SCH (09:07)
[2021-11-02] MEDS: POTASSIUM CHLORIDE 10MEQ SR TABLET PO SCH ×2 (09:07→21:35)
[2021-11-02] MEDS: METOPROLOL TART 25 MG TABLET PO SCH (09:08)
[2021-11-02] MEDS: IRON SUCROSE 200 MG in NS 100 ML IV SCH (13:14)
[2021-11-02 14:00] VITALS: BP 103/57
[2021-11-02 21:00] VITALS: BP 104/58
[2021-11-02] MEDS: RAMELTEON 8 MG TAB (ROZEREM) PO PRN (21:35)
[2021-11-02] MEDS: SERTRALINE HCL 25 MG TABLET PO SCH (21:35)
[2021-11-02] MEDS: ATORVASTATIN 20 MG TAB PO SCH (21:35)
[2021-11-02] MEDS: ACETAMINOPHEN 500 MG TAB PO PRN (21:36)
[2021-11-03] MEDS: IPRATROPIUM 0.5MG/ALBUTEROL 2.5MG INH SOL UD 3ML (DUONEB) NEB SCH ×7 (03:25→23:31)
[2021-11-03 06:00] VITALS: BP 127/66
[2021-11-03 06:23] LABS: HEMATOCRIT 29.4 % (42.0-52.0); HEMOGLOBIN 8.6 g/dl (13.5-17.5); MEAN CORPUSCULAR HGB CONC 29.3 g/dl (32.0-36.5); MEAN CORPUSCULAR VOLUME 85.5 fl (80.0-96.0); PLATELET COUNT, AUTOMATED 276 10^3/uL (150-450); RED BLOOD COUNT 3.44 10^6/uL (4.30-6.10); WHITE BLOOD COUNT 7.6 10^3/uL (4.0-10.0)
[2021-11-03 06:50] LABS: BLOOD UREA NITROGEN 9 MG/DL (7-18); CALCIUM LEVEL 7.9 MG/DL (8.8-10.2); CARBON DIOXIDE LEVEL 26 MEQ/L (21-32); CHLORIDE LEVEL 111 MEQ/L (98-107); CREATININE FOR GFR 0.87 MG/DL (0.70-1.30); GLOMERULAR FILTRATION RATE > 60.0 (>42); GLUCOSE, FASTING 83 MG/DL (70-100); POTASSIUM SERUM 4.4 MEQ/L (3.5-5.1); SODIUM LEVEL 141 MEQ/L (136-145)
[2021-11-03] MEDS: SYMBICORT 160/4.5MCG INHALER 6GM INH SCH ×2 (07:55→19:54)
[2021-11-03] MEDS: PANTOPRAZOLE 40MG VIAL IV SCH ×2 (09:26→20:51)
[2021-11-03] MEDS: TAMSULOSIN 0.4 MG CAP PO SCH (09:26)
[2021-11-03] MEDS: METOPROLOL TART 25 MG TABLET PO SCH (09:27)
[2021-11-03] MEDS: POTASSIUM CHLORIDE 10MEQ SR TABLET PO SCH ×2 (09:27→20:50)
[2021-11-03] MEDS: IRON SUCROSE 200 MG in NS 100 ML IV SCH (12:54)
[2021-11-03 14:00] VITALS: BP 105/58
[2021-11-03] MEDS: RAMELTEON 8 MG TAB (ROZEREM) PO PRN (20:50)
[2021-11-03] MEDS: ATORVASTATIN 20 MG TAB PO SCH (20:51)
[2021-11-03] MEDS: SERTRALINE HCL 25 MG TABLET PO SCH (20:51)
[2021-11-04] MEDS: ACETAMINOPHEN 500 MG TAB PO PRN (03:54)
[2021-11-04] MEDS: IPRATROPIUM 0.5MG/ALBUTEROL 2.5MG INH SOL UD 3ML (DUONEB) NEB SCH ×6 (03:59→23:09)
[2021-11-04 06:00] VITALS: BP 112/62
[2021-11-04 06:56] LABS: HEMATOCRIT 29.4 % (42.0-52.0); HEMOGLOBIN 8.6 g/dl (13.5-17.5); MEAN CORPUSCULAR HEMOGLOBIN 25.4 pg (27.0-33.0); MEAN CORPUSCULAR HGB CONC 29.3 g/dl (32.0-36.5); MEAN CORPUSCULAR VOLUME 86.7 fl (80.0-96.0); PLATELET COUNT, AUTOMATED 272 10^3/uL (150-450); RED BLOOD COUNT 3.39 10^6/uL (4.30-6.10); WHITE BLOOD COUNT 8.5 10^3/uL (4.0-10.0)
[2021-11-04 07:25] LABS: BLOOD UREA NITROGEN 10 MG/DL (7-18); CARBON DIOXIDE LEVEL 25 MEQ/L (21-32); CHLORIDE LEVEL 110 MEQ/L (98-107); CREATININE FOR GFR 0.87 MG/DL (0.70-1.30); GLOMERULAR FILTRATION RATE > 60.0 (>42); GLUCOSE, FASTING 91 MG/DL (70-100); POTASSIUM SERUM 4.2 MEQ/L (3.5-5.1); SODIUM LEVEL 139 MEQ/L (136-145)
[2021-11-04 07:43] VITALS: O2SAT 97
[2021-11-04] MEDS: SYMBICORT 160/4.5MCG INHALER 6GM INH SCH ×2 (07:43→20:03)
[2021-11-04] MEDS: POTASSIUM CHLORIDE 10MEQ SR TABLET PO SCH ×2 (09:00→21:18)
[2021-11-04] MEDS: TAMSULOSIN 0.4 MG CAP PO SCH (09:58)
[2021-11-04] MEDS: METOPROLOL TART 25 MG TABLET PO SCH (10:03)
[2021-11-04] MEDS: PANTOPRAZOLE 40MG VIAL IV SCH ×2 (10:03→21:18)
[2021-11-04] MEDS: ATORVASTATIN 20 MG TAB PO SCH (21:18)
[2021-11-04] MEDS: SERTRALINE HCL 25 MG TABLET PO SCH (21:18)
[2021-11-05] MEDS: IPRATROPIUM 0.5MG/ALBUTEROL 2.5MG INH SOL UD 3ML (DUONEB) NEB SCH ×5 (03:18→20:00)
[2021-11-05 05:54] LABS: HEMATOCRIT 29.7 % (42.0-52.0); HEMOGLOBIN 8.8 g/dl (13.5-17.5); MEAN CORPUSCULAR HEMOGLOBIN 25.5 pg (27.0-33.0); MEAN CORPUSCULAR HGB CONC 29.6 g/dl (32.0-36.5); MEAN CORPUSCULAR VOLUME 86.1 fl (80.0-96.0); PLATELET COUNT, AUTOMATED 270 10^3/uL (150-450); RED BLOOD COUNT 3.45 10^6/uL (4.30-6.10); WHITE BLOOD COUNT 8.6 10^3/uL (4.0-10.0)
[2021-11-05 06:00] VITALS: BP 108/58
[2021-11-05 06:29] LABS: BLOOD UREA NITROGEN 8 MG/DL (7-18); CALCIUM LEVEL 7.7 MG/DL (8.8-10.2); CARBON DIOXIDE LEVEL 26 MEQ/L (21-32); CHLORIDE LEVEL 112 MEQ/L (98-107); CREATININE FOR GFR 0.81 MG/DL (0.70-1.30); GLOMERULAR FILTRATION RATE > 60.0 (>42); GLUCOSE, FASTING 95 MG/DL (70-100); POTASSIUM SERUM 4.5 MEQ/L (3.5-5.1); SODIUM LEVEL 141 MEQ/L (136-145)
[2021-11-05] MEDS: SYMBICORT 160/4.5MCG INHALER 6GM INH SCH ×2 (07:54→20:16)
[2021-11-05] MEDS: TAMSULOSIN 0.4 MG CAP PO SCH (09:45)
[2021-11-05] MEDS: METOPROLOL TART 25 MG TABLET PO SCH (09:46)
[2021-11-05] MEDS: PANTOPRAZOLE 40MG VIAL IV SCH ×2 (09:47→20:44)
[2021-11-05] MEDS: POTASSIUM CHLORIDE 10MEQ SR TABLET PO SCH ×2 (09:47→20:44)
[2021-11-05 11:31] VITALS: O2SAT 99
[2021-11-05] MEDS: SERTRALINE HCL 25 MG TABLET PO SCH (20:44)
[2021-11-05] MEDS: ATORVASTATIN 20 MG TAB PO SCH (20:45)
[2021-11-05 21:03] VITALS: BP 101/47
[2021-11-06] MEDS: RAMELTEON 8 MG TAB (ROZEREM) PO PRN ×2 (00:36→20:06)
[2021-11-06] MEDS: IPRATROPIUM 0.5MG/ALBUTEROL 2.5MG INH SOL UD 3ML (DUONEB) NEB SCH ×6 (04:00→20:00)
[2021-11-06 05:26] VITALS: BP 102/47
[2021-11-06 06:17] LABS: HEMATOCRIT 30.8 % (42.0-52.0); MEAN CORPUSCULAR HEMOGLOBIN 25.3 pg (27.0-33.0); MEAN CORPUSCULAR HGB CONC 29.2 g/dl (32.0-36.5); MEAN CORPUSCULAR VOLUME 86.5 fl (80.0-96.0); PLATELET COUNT, AUTOMATED 263 10^3/uL (150-450); RED BLOOD COUNT 3.56 10^6/uL (4.30-6.10); WHITE BLOOD COUNT 8.8 10^3/uL (4.0-10.0)
[2021-11-06 06:50] LABS: BLOOD UREA NITROGEN 9 MG/DL (7-18); CALCIUM LEVEL 8.1 MG/DL (8.8-10.2); CARBON DIOXIDE LEVEL 26 MEQ/L (21-32); CHLORIDE LEVEL 110 MEQ/L (98-107); CREATININE FOR GFR 0.89 MG/DL (0.70-1.30); GLOMERULAR FILTRATION RATE > 60.0 (>42); GLUCOSE, FASTING 93 MG/DL (70-100); POTASSIUM SERUM 4.9 MEQ/L (3.5-5.1); SODIUM LEVEL 141 MEQ/L (136-145)
[2021-11-06] MEDS: SYMBICORT 160/4.5MCG INHALER 6GM INH SCH ×2 (07:32→20:00)
[2021-11-06] MEDS: PANTOPRAZOLE 40MG VIAL IV SCH (09:16)
[2021-11-06] MEDS: TAMSULOSIN 0.4 MG CAP PO SCH (09:16)
[2021-11-06] MEDS: METOPROLOL TART 25 MG TABLET PO SCH (09:17)
[2021-11-06] MEDS: POTASSIUM CHLORIDE 10MEQ SR TABLET PO SCH ×2 (09:17→20:06)
[2021-11-06] MEDS: ATORVASTATIN 20 MG TAB PO SCH (20:06)
[2021-11-06] MEDS: PANTOPRAZOLE 40MG TAB (PROTONIX) PO SCH (20:06)
[2021-11-06] MEDS: SERTRALINE HCL 25 MG TABLET PO SCH (20:06)
[2021-11-07] MEDS: IPRATROPIUM 0.5MG/ALBUTEROL 2.5MG INH SOL UD 3ML (DUONEB) NEB SCH ×6 (03:21→20:00)
[2021-11-07 06:00] VITALS: BP 111/60
[2021-11-07 06:28] LABS: HEMATOCRIT 29.5 % (42.0-52.0); MEAN CORPUSCULAR HEMOGLOBIN 26.1 pg (27.0-33.0); MEAN CORPUSCULAR HGB CONC 30.5 g/dl (32.0-36.5); MEAN CORPUSCULAR VOLUME 85.5 fl (80.0-96.0); PLATELET COUNT, AUTOMATED 262 10^3/uL (150-450); RED BLOOD COUNT 3.45 10^6/uL (4.30-6.10); WHITE BLOOD COUNT 8.4 10^3/uL (4.0-10.0)
[2021-11-07 07:04] LABS: BLOOD UREA NITROGEN 10 MG/DL (7-18); CARBON DIOXIDE LEVEL 24 MEQ/L (21-32); CHLORIDE LEVEL 110 MEQ/L (98-107); CREATININE FOR GFR 0.84 MG/DL (0.70-1.30); GLOMERULAR FILTRATION RATE > 60.0 (>42); GLUCOSE, FASTING 94 MG/DL (70-100); POTASSIUM SERUM 4.3 MEQ/L (3.5-5.1); SODIUM LEVEL 139 MEQ/L (136-145)
[2021-11-07] MEDS: SYMBICORT 160/4.5MCG INHALER 6GM INH SCH ×2 (07:58→20:00)
[2021-11-07] MEDS: PANTOPRAZOLE 40MG TAB (PROTONIX) PO SCH ×2 (09:10→20:28)
[2021-11-07] MEDS: TAMSULOSIN 0.4 MG CAP PO SCH (09:10)
[2021-11-07] MEDS: POTASSIUM CHLORIDE 10MEQ SR TABLET PO SCH ×2 (09:10→20:28)
[2021-11-07] MEDS: METOPROLOL TART 25 MG TABLET PO SCH (09:12)
[2021-11-07] MEDS ORDERED: MIRALAX *UNIT DOSE* 17GM PACKET PO PRN (17:10)
[2021-11-07] MEDS: SERTRALINE HCL 25 MG TABLET PO SCH (20:28)
[2021-11-07] MEDS: ATORVASTATIN 20 MG TAB PO SCH (20:28)
[2021-11-07] MEDS: RAMELTEON 8 MG TAB (ROZEREM) PO PRN (20:28)
[2021-11-07] MEDS: DOCUSATE SODIUM 100MG CAPSULE PO SCH (20:28)
[2021-11-08] MEDS: IPRATROPIUM 0.5MG/ALBUTEROL 2.5MG INH SOL UD 3ML (DUONEB) NEB SCH ×7 (04:00→23:07)
[2021-11-08 05:50] VITALS: BP 100/55
[2021-11-08 05:59] LABS: HEMATOCRIT 31.2 % (42.0-52.0); HEMOGLOBIN 9.4 g/dl (13.5-17.5); MEAN CORPUSCULAR HEMOGLOBIN 25.8 pg (27.0-33.0); MEAN CORPUSCULAR HGB CONC 30.1 g/dl (32.0-36.5); MEAN CORPUSCULAR VOLUME 85.5 fl (80.0-96.0); PLATELET COUNT, AUTOMATED 271 10^3/uL (150-450); RED BLOOD COUNT 3.65 10^6/uL (4.30-6.10)
[2021-11-08 07:07] LABS: BLOOD UREA NITROGEN 7 MG/DL (7-18); CALCIUM LEVEL 8.1 MG/DL (8.8-10.2); CARBON DIOXIDE LEVEL 24 MEQ/L (21-32); CHLORIDE LEVEL 110 MEQ/L (98-107); CREATININE FOR GFR 0.81 MG/DL (0.70-1.30); GLOMERULAR FILTRATION RATE > 60.0 (>42); GLUCOSE, FASTING 100 MG/DL (70-100); POTASSIUM SERUM 4.8 MEQ/L (3.5-5.1); SODIUM LEVEL 140 MEQ/L (136-145)
[2021-11-08] MEDS: SYMBICORT 160/4.5MCG INHALER 6GM INH SCH ×2 (07:37→19:08)
[2021-11-08] MEDS: PANTOPRAZOLE 40MG TAB (PROTONIX) PO SCH ×2 (08:37→20:56)
[2021-11-08] MEDS: DOCUSATE SODIUM 100MG CAPSULE PO SCH ×2 (08:37→20:56)
[2021-11-08] MEDS: POTASSIUM CHLORIDE 10MEQ SR TABLET PO SCH ×2 (08:38→20:57)
[2021-11-08] MEDS: TAMSULOSIN 0.4 MG CAP PO SCH (08:38)
[2021-11-08] MEDS: METOPROLOL TART 25 MG TABLET PO SCH ×2 (08:45→08:52)
[2021-11-08] MEDS ORDERED: COVID-19 VACC, MRNA(PFIZER)/PF 30MCG 0.3ML VIAL (EUA) IM ONE (17:00)
[2021-11-08] MEDS: ATORVASTATIN 20 MG TAB PO SCH (20:56)
[2021-11-08] MEDS: RAMELTEON 8 MG TAB (ROZEREM) PO PRN (20:56)
[2021-11-08] MEDS: SERTRALINE HCL 25 MG TABLET PO SCH (20:56)
[2021-11-09] MEDS: IPRATROPIUM 0.5MG/ALBUTEROL 2.5MG INH SOL UD 3ML (DUONEB) NEB SCH ×4 (04:00→14:50)
[2021-11-09 05:35] VITALS: BP 102/68
[2021-11-09] MEDS: SYMBICORT 160/4.5MCG INHALER 6GM INH SCH (07:50)
[2021-11-09 09:00] VITALS: BP 105/63
[2021-11-09] MEDS: DOCUSATE SODIUM 100MG CAPSULE PO SCH (09:00)
[2021-11-09] MEDS: PANTOPRAZOLE 40MG TAB (PROTONIX) PO SCH (09:00)
[2021-11-09] MEDS: TAMSULOSIN 0.4 MG CAP PO SCH (09:00)
[2021-11-09] MEDS: POTASSIUM CHLORIDE 10MEQ SR TABLET PO SCH (09:00)
[2021-11-09] MEDS: METOPROLOL TART 25 MG TABLET PO SCH (09:00)
[2021-11-09] MEDS ORDERED: METO1TAB87 PO (11:11)
[2021-11-09] MEDS ORDERED: PANT40TA29 PO (11:11)
== END 2021-11-09 16:14 | disposition home or self-care (01) | DRG 314 ==
LOC: EDSEX 11:54 → EDBD 11:54 → M ED 11:54 → M ED INP 15:59 → ENRESERV 17:38 → M PCU 19:57 → M MSPAV 10-28 18:41
PROVIDERS: ADMIT Internal Medicine; ATTEND Internal Medicine
PROC: 0W9B3ZZ Drainage of Left Pleural Cavity, Percutaneous Approach (ICD-10-PCS; principal; 2021-10-23 13:30)
PROC: 0W9B3ZZ Drainage of Left Pleural Cavity, Percutaneous Approach (ICD-10-PCS; 2021-10-24)
PROC: 0W9B3ZZ Drainage of Left Pleural Cavity, Percutaneous Approach (ICD-10-PCS; 2021-10-25)
DX: T82.818A Embolism due to vascular prosthetic devices, implants and grafts, initial encounter (principal); J18.9 Pneumonia, unspecified organism; J86.9 Pyothorax without fistula; I74.10 Embolism and thrombosis of unspecified parts of aorta; J90 Pleural effusion, not elsewhere classified; I47.2 Ventricular tachycardia; I10 Essential (primary) hypertension; F03.90 Unspecified dementia, unspecified severity, without behavioral disturbance, psychotic disturbance, mood disturbance, and anxiety; J44.9 Chronic obstructive pulmonary disease, unspecified; D50.9 Iron deficiency anemia, unspecified; I48.91 Unspecified atrial fibrillation; E78.5 Hyperlipidemia, unspecified; N40.0 Benign prostatic hyperplasia without lower urinary tract symptoms; I72.3 Aneurysm of iliac artery; I71.2 Thoracic aortic aneurysm, without rupture; E87.6 Hypokalemia; R33.9 Retention of urine, unspecified; F32.A Depression, unspecified; F41.9 Anxiety disorder, unspecified; Z88.2 Allergy status to sulfonamides; Z88.8 Allergy status to other drugs, medicaments and biological substances; Z88.0 Allergy status to penicillin; Z79.899 Other long term (current) drug therapy; R91.1 Solitary pulmonary nodule; Z66 Do not resuscitate; Z85.038 Personal history of other malignant neoplasm of large intestine; R19.7 Diarrhea, unspecified; Y83.1 Surgical operation with implant of artificial internal device as the cause of abnormal reaction of the patient, or of later complication, without mention of misadventure at the time of the procedure